=== PATIENT | female | born 1945 | race Caucasian/White ===

== ENCOUNTER 2016-07-19 17:26 | Emergency (ER) | payer MEDICARE ==
[2016-07-19 18:27] LABS: Urine Appearance Cloudy; Urine Bilirubin Negative (NEGATIVE); Urine Color Yellow; Urine Ketone Negative (NEGATIVE)
[2016-07-19 18:28] LABS: Urine Blood 150 /ul (NEGATIVE); Urine Nitrite Negative (NEGATIVE); Urine Protein >=300 mg/dL (NEGATIVE); Urine Specific Gravity 1.025 SP.GR. (1.005-1.010); Urine Urobilinogen Normal (NORMAL)
[2016-07-19 18:30] LABS: Urine Bacteria 1+; Urine WBC >50 /hpf (0-5)
[2016-07-19] MEDS ORDERED: PHENAZOPYRIDINE HCL 100 MG TABLET PO ONE (18:46)
[2016-07-19] MEDS ORDERED: PHENAZOPYRIDINE HCL 100 MG TABLET ONE (18:48)
--- OUTSIDE RECORDS SUMMARY | 2016-07-19 18:53 | XMS REPORT | Continuity of Care Document ---
:1945 Author Organization [facility] ([facility]) Address [address] [place] [address] Phone [phone] Care Team Providers Name Role Phone Albina Cleaning Primary Care Provider [phone] Source Comments This disclosure is being made pursuant to the Care Everywhere program, applicable federal and state laws, and may not contain all informaitonavailable regarding this patient.[facility] ([facility]) Active Allergies and Adverse Reactions Allergen Noted Date Severity Reactions Comments Meperidine Nausea & Vomiting Other Agent Blisters "ADHESIVE TAPE" Current Medications Prescription Sig. Disp. Refills Start Date End Date Status GLIMEPIRIDE 4 mg tablet Take by mouth 2 12/13/2013 Active times daily with meals. HYDROCODONE-ACETAMINOPH Take 1 Tab by 02/04/2014 Active EN 5-325 mg per tablet mouth every 4 hours as needed. LISINOPRIL-HYDROCHLOROT Take 1 Tab by 12/13/2013 Active HIAZIDE 20-12.5 mg per mouth daily. tablet METHADONE 5 mg tablet Take 1 Tab by 02/11/2014 Active mouth 2 times daily. ZOLMITRIPTAN 5 mg Take 1 Tab by 02/27/2014 Active tablet mouth as needed. ATORVASTATIN 40 mg Take 1 Tab by 02/27/2014 Active tablet mouth daily. HYDROXYZINE HCL 50 mg Take 2 Tabs by 02/27/2014 Active tablet mouth 2 times daily. LEVOTHYROXINE 150 mcg Take 1 Tab by 02/27/2014 Active tablet mouth daily. METOPROLOL succinate 25 Take 1 Tab by 12/22/2013 Active mg XL tablet mouth daily. ONGLYZA 5 mg tablet Take 1 Tab by 12/13/2013 Active mouth daily. gabapentin 300 mg Take 1 capsule by Active capsule mouth every morning then take 2 tablets by mouth every evening latanoprost 0.005 % instill 1 Drop Active ophthalmic solution onto both eyes every evening. omega-3 fatty Take 1,000 mg by Active acids-vitamin E (FISH mouth daily. OIL) 1,000 mg capsule multivitamin tablet Take 1 Tab by Active mouth daily. ascorbic acid (VITAMIN Take 500 mg by Active C) 500 mg tablet mouth daily. TRIMETHOPRIM-SULFAMETHO 08/14/2014 Active XAZOLE 80-400 mg per tablet SUPPLY ACCU-CHEK DAE 12/12/2014 Active PLUS test strip LANTUS 100 unit/mL 30 Units daily 01/02/2015 Active injection vial solifenacin (VESICARE) Take 1 tablet (10 90 tablet 3 08/21/2015 Active 10 mg tablet mg total) by mouth daily. Active Problems Problem Noted Date Chronic pain 06/17/2014 High body mass index 06/14/2014 UPJ (ureteropelvic junction) obstruction 03/06/2014 Immunizations Name Dates Previously Given Next Due Influenza, unspecified 03/20/2014 Pneumococcal Polysaccharide, PPSV23 (Pneumovax 23) 06/17/2014 Social History Tobacco Use Types Packs/Day Years Used Date Never Smoker Smokeless Tobacco: Never Used Tobacco Cessation:Counseling Given: Yes Comments: Alcohol Use Drinks/Week oz/Week Comments No Last Filed Vital Signs Vital Sign Reading Time Taken Blood Pressure 128/67 07/13/2015 2:12 PM CDT Pulse 73 07/13/2015 2:12 PM CDT Temperature 36.9 C (98.4 F) 07/13/2015 2:12 PM CDT Respiratory Rate 16 06/17/2014 8: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 Height 1.549 m (5' 1") 06/15/2014 10:00 PM ACTIVE DIRECTORY SYSTEMS ADMINISTRATOR Weight 108 kg (238 lb 1.6 oz) 10/06/2014 11:33 AM CDT Body Mass Index 45.01 10/06/2014 11:33 AM CDT Oxygen Saturation 94% 06/17/2014 8: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 Plan of Care Health Maintenance Due Date Last Done Comments HCV Screening 1945 Hepatitis B Vaccine (1 of 3 - Primary Series) 1945 Tdap Vaccine 1956 Lipid Disorder Screening 07/03/1963 Td Vaccine 07/03/1963 Mammogram 1985 Colonoscopy 1995 Zoster Vaccine 2005 Osteoporosis Screening (DXA Bone Density) 2010 Pneumococcal Vaccine (2 of 2 - PCV13) 06/17/2015 06/17/2014 Influenza Vaccine: Seasonal (#1) 11/19/2015 03/20/2014 Results from Last 3 Months Not on file
--- NOTE | 2016-07-19 19:02 | ERNOTE ---
ER Female HPI Date of Service: 07/19/16 Stated Complaint: URINARY PROBLEM Presenting Symptoms: dysuria Time Seen by Provider: 07/19/16 18:40 Source: patient Exam Limitations: no limitations Immunizations: IMMUNIZATION HX Immunizations Up to Date Yes History of Influenza Vaccine Yes Hx Pneumococcal Vaccination Yes Allergies/Adverse Reactions: Allergies meperidine HCl [From Demerol] Allergy (Mild, Verified 07/19/16 18:11) Home Medications: HOME MEDICATIONS Ascorbic Acid [Vitamin C] 500 mg PO DAILY 05/07/12 [Last Taken Unknown] Aspirin [Aspirin Chewable] 81 mg PO DAILY 05/07/12 [Last Taken Unknown] Atorvastatin Calcium [Lipitor] 40 mg PO DAILY 05/07/12 [Last Taken Unknown] Cetirizine HCl [Zyrtec] 10 mg PO DAILY PRN 05/07/12 [Last Taken Unknown] Cholecalciferol (Vitamin D3) [Vitamin D] 1,000 unit PO DAILY 05/07/12 [Last Taken Unknown] Diphenhydramine HCl [Benadryl Allergy] 25 mg PO HS PRN 05/07/12 [Last Taken Unknown] FLUoxetine HCL [Prozac] 40 mg PO DAILY 05/07/12 [Last Taken Unknown] Furosemide [Lasix] 40 mg PO PRN PRN 05/07/12 [Last Taken Unknown] Gabapentin 600 mg PO TID 05/07/12 [Last Taken Unknown] Glimepiride 4 mg PO BID 05/07/12 [Last Taken Unknown] Hydroxyzine HCl 50 mg PO QID 05/07/12 [Last Taken Unknown] Levothyroxine Sodium 125 mcg PO DAILY 05/07/12 [Last Taken Unknown] Metformin HCl 1,000 mg PO BID 05/07/12 [Last Taken Unknown] Methadone HCl 5 mg PO BID 05/07/12 [Last Taken Unknown] Olmesartan/Hydrochlorothiazide [Benicar Hct 20-12.5 mg Tablet] 1 each PO DAILY 05/07/12 [Last Taken Unknown] Baldwin-3/Dha/Epa/Fish Oil [Fish Oil] 1,000 mg PO DAILY 05/07/12 [Last Taken Unknown] Saxagliptin HCl [Onglyza] 5 mg PO DAILY 05/07/12 [Last Taken Unknown] Travoprost [Travatan Z] 1 drop LEFTEYE DAILY 05/07/12 [Last Taken Unknown] Triamcinolone Acetonide 10 gm MC PRN PRN 05/07/12 [Last Taken Unknown] Zolmitriptan [Zomig] 5 mg PO PRN 05/07/12 [Last Taken Unknown] Phenazopyridine HCl [Pyridium] 200 mg PO TID #6 tablet 02/04/14 [Last Taken Unknown] Sulfamethoxazole/Trimethoprim [Bactrim Ds] 1 tab PO BID #20 tab 02/04/14 [Last Taken Unknown] Vesicare 10/08/14 [Last Taken Unknown] predniSONE [Prednisone] 3 tab PO DAILY #9 tab 10/08/14 [Last Taken Unknown] Ciprofloxacin HCl [Cipro] 500 mg PO BID #28 tab 07/19/16 [Last Taken Unknown] Phenazopyridine HCl [Pyridium] 100 mg PO TID #6 tab 07/19/16 [Last Taken Unknown ] - History of Present Illness Narrative: Pt. comes in with c/o dysuria, frequency and foul smelling urine since this morning. Pt. has a hx of frequent UTIs, and renal insufficiency. Pt. denies any SOB, CP, swelling, dizziness, lightheadedness, fever, or chills. Review of Systems - Review of Systems Constitutional: Present: no symptoms reported. Absent: recent illness, fever, chills, weakness, fatigue, malaise EYE: Present: no symptoms reported ENT: Present: no symptoms reported Respiratory: Present: no symptoms reported. Absent: shortness of breath, cough , wheezing Cardiology: Present: no symptoms reported. Absent: chest pain, palpitations, edema Gastrointestinal/Abdominal: Present: no symptoms reported. Absent: nausea, vomiting, diarrhea, abdominal pain Genitourinary: Present: frequency, dysuria, decreased urinary output Musculoskeletal: Present: no symptoms reported. Absent: back pain, joint pain Skin: Present: no symptoms reported Neurological: Present: no symptoms reported. Absent: headache, dizziness/light- headedness, numbness, tingling All Other Systems: All systems neg except as marked - Patient's Past Medical History Patient History - Medical: Diabetes Type 2, UTI'S Patient History - Cardiac/Respiratory: Hypertension Patient History - Cancer: No Hx of Cancer Patient History - Surgical Procedures: Appendectomy, Hysterectomy, Other - Oopherectomy, Bilateral Total Knee Replacement, Vein Stripping - Social History Living Situations: home Psych History: No pertinent hx Smoking Status: Never smoker Patient requests Smoking Cessation Consult: No Initiate information on Smoking Cessation: No Alcohol Use: none Drug Use: none - Immunizations Immunizations Up to Date: Yes Hx Pneumococcal Vaccination: Yes History of Influenza Vaccine: Yes Physical Exam - Physical Exam General Appearance: Present: wd/wn, alert, no apparent distress Eye Exam: Normal inspection: bilateral, PERRL: bilateral, EOMI: bilateral Ears, Nose, Throat: Present: normal ENT inspection, normal pharynx Neck: Present: normal inspection, nontender. Absent: lymphadenopathy (R), lymphadenopathy (L) Respiratory: Present: no respiratory distress, normal breath sounds, no accessory muscle use, chest nontender, lungs clear Cardiovascular/Chest: Present: regular rate, rhythm, no murmur, normal peripheral pulses Gastrointestinal/Abdominal: Present: normal bowel sounds, nontender, nondistended, soft, no organomegaly Back Exam: Present: normal inspection, normal range of motion, no CVA tenderness , no vertebral tenderness Extremity Exam: Present: normal inspection, non-tender, normal range of motion, no edema Neurological Exam: Present: alert, oriented, normal mood/affect, no motor/ sensory deficits Skin Exam: Present: normal color, warm/dry. Absent: pallor, skin rash ED Progress - Results and Orders Patient's Lab Results:: I have reviewed the patient's lab results. - Vital Signs Patient's Vital Signs:: I have reviewed the patient's vital signs. Vital Signs: Vital Signs 07/19/16 18:08 Temperature 36.9 C Pulse Rate 76 Respiratory 20 Rate Blood Pressure 128/94 O2 Sat by Pulse 98 Oximetry - Progress/Reassessment Chief Complaint: Genitourinary Problem Progress:: Unchanged Departure Clinical Impression: Urinary tract infection Qualifiers: Urinary tract infection type: acute cystitis Hematuria presence: with hematuria Qualified Code(s): N30.01 - Acute cystitis with hematuria - Departure Disposition: Home self-care Condition: Good Instructions: Urinary Tract Infection, Adult, [id number] Additional Instructions: Please follow up with primary provider in 2-3 days. Referrals: Albina Cleaning MD [Primary Care Provider] - Prescriptions: Ciprofloxacin HCl [Cipro] 500 mg PO BID #28 tab Phenazopyridine HCl [Pyridium] 100 mg PO TID #6 tab
[2016-07-19 19:08] LABS: Hematocrit 42.6 % (37.0-47.0); Hemoglobin 13.9 gm/dL (12.5-16.0); Mean Cell Volume 98.2 fl (78-100); Mean Corpuscular Hgb Conc 32.6 g/dl (32-36); Mean Platelet Volume 9.3 fl (6.0-9.5); Neutrophil # 11.3 K/mm3 (1.3-6.0); Neutrophil % 68.2 % (42-75.0); Platelet Count 232 K/mm3 (150-450); Red Blood Count 4.34 M/mm3 (4.2-5.4); Red Cell Distribution Width 12.3 % (11.5-14.0); White Blood Count 16.5 K/mm3 (4.0-10.5)
[2016-07-19 19:20] LABS: Albumin * 3.6 gm/dl (3.4-5.0); Anion Gap 11.8 mmol/L (6.8-13.8); Bilirubin, Total 0.7 mg/dL (0.0-1.1); Ca. Corrected For Albumin 9.1 mg/dL (8.4-10.2); Calcium * 9.1 mg/dL (7.9-10.9); Carbon Dioxide 30.7 mmol/L (24-32.6); Potassium 4.5 mmol/L (3.4-4.6); Total Protein 7.3 gm/dL (6.2-8.2)
[2016-07-19] MEDS ORDERED: CIPROFLOXACIN HCL 250 MG TABLET ONE (19:33)
[2016-07-19] MEDS ORDERED: CIPROFLOXACIN HCL 250 MG TABLET PO ONE (19:37)
[2016-07-19 19:44] VITALS: BP 126/64
== END 2016-07-19 19:42 | disposition home or self-care (01) ==
LOC: ER 17:26
DX: N30.01 Acute cystitis with hematuria (principal)

== ENCOUNTER 2019-05-16 08:47 | Inpatient (IN) ==
--- NOTE | 2019-04-27 10:51 | ANES ---
Anesthesia Pre Procedure Eval HOME MEDICATIONS travoprost 0.004 % eye drops 1 drp OP DAILY 12/10/17 [Last Taken Unknown] WIH-wrwebprocpfcj-saodbzts-buffers 227 mg-194 mg-33 mg tablet 2 tab PO DAILY #180 tab 02/02/18 [Last Taken Unknown] albuterol sulfate 2.5 mg IH QID PRN #180 ml 02/02/18 [Last Taken Unknown] ascorbic acid (vitamin C) 500 mg tablet 500 mg PO DAILY #90 tab 02/02/18 [Last Taken Unknown] aspirin 81 mg chewable tablet 81 mg PO DAILY #90 tab 02/02/18 [Last Taken Unknown] calcium carbonate 500 mg (1,250 mg)-vitamin D3 200 unit tablet 1 tab PO DAILY #90 tab 02/02/18 [Last Taken Unknown] cholecalciferol (vitamin D3) 1,000 unit (25 mcg) tablet 1,000 unit PO DAILY #90 tab 02/02/18 [Last Taken Unknown] omega 3-dha 60 mg-epa 90 mg-fish oil 500 mg capsule, delayed release 2 cap PO DAILY #180 cap 02/02/18 [Last Taken Unknown] insulin glargine 100 unit/mL subcutaneous solution 40 unit SUB-Q DAILY 90 Days #36 ml 03/22/18 [Last Taken Unknown] blood sugar diagnostic See Dose Instructions .ROUTE .MEDSUPPLY #100 ea 07/28/18 [Last Taken Unknown] levothyroxine 100 mcg tablet 100 mcg PO DAILY #90 tab 09/14/18 [Last Taken Unknown] sulfamethoxazole 400 mg-trimethoprim 80 mg tablet 1 tab PO DAILY #90 tab 09/23/18 [Last Taken Unknown] cetirizine 10 mg tablet 10 mg PO DAILY #90 tab 01/21/19 [Last Taken Unknown] lisinopril 20 mg-hydrochlorothiazide 12.5 mg tablet 1 tab PO DAILY #90 tab 02/21/19 [Last Taken Unknown] atorvastatin 40 mg tablet 40 mg PO DAILY #90 tab 03/07/19 [Last Taken Unknown] zolmitriptan 5 mg tablet 5 mg PO .COMPLEX PRN #36 tab 03/07/19 [Last Taken Unknown] HYDROcodone/ACETAMINOPHEN [Hydrocodon-Acetaminophen 5-325] 1 - 2 ea PO Q6H PRN #16 tab 03/19/19 [Last Taken Unknown] insulin syringe-needle U-100 0.5 mL 31 gauge x 5/16" See Dose Instructions .ROUTE .MEDSUPPLY #100 ea 04/07/19 [Last Taken Unknown] tramadol 50 mg tablet 100 mg PO QID PRN #60 tab 04/07/19 [Last Taken Unknown] Diazepam [Valium] 5 mg PO BID PRN #6 tab 04/26/19 [Last Taken Unknown] Diazepam 5 mg PO BID PRN 04/27/19 [Last Taken Unknown] FLUoxetine HCL [Fluoxetine HCl] 40 mg PO DAILY 04/27/19 [Last Taken Unknown] Allergies/Adverse Reactions: Allergies Allergy/AdvReac Type Severity Reaction Status Date / Time adhesive tape Allergy Intermediate Other Verified 04/27/19 08:24 alendronate sodium AdvReac Mild Nausea Verified 04/27/19 08:21 [From Fosamax] meperidine HCl [From Demerol] AdvReac Mild vomiting Verified 04/27/19 08:22 - Planned Procedure Planned Procedure: Left Arthroplasty Total Hip Medication List Reviewed:: Yes Allergies Verified: Yes Medical History (Last Reviewed 04/27/19 @ 10:49 by Presley Jackson CRNA) 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 Vertigo Chronic pain syndrome Onset Date: Unknown Diabetes Onset Date: ~1999 Diverticulosis Onset Date: Unknown Gout Onset Date: Unknown Hydronephrosis Onset Date: ~2003 left hydronephrosis and a renal scan showed ureteral obstruction and function of 20% Hyperlipidemia Onset Date: ~1997 Hypertension Onset Date: ~1995 Hyperthyroidism Onset Date: ~1997 treated with ERIC Morbid obesity Onset Date: Unknown Spinal stenosis Onset Date: Unknown Occ radiation causing sciatic pain Surgical History (Last Reviewed 04/27/19 @ 10:49 by Presley Jackson CRNA) Abnormal colonoscopy Onset Date: 08/25/05 diverticulosis, 3mm polyps at 110 cm. H/O cystoscopy Onset Date: ~05/2005 removal of double J stent. Endoscopic balloon dilatation of the left ureteropelvic junction. Placement of double J stent. H/O oophorectomy Onset Date: ~1988 right ovary H/O total hysterectomy Onset Date: ~1990 MING and left ovary removal History of appendectomy Onset Date: ~1988 History of total left knee replacement Onset Date: ~2006 History of total right knee replacement Onset Date: ~1998 Lesion of breast Onset Date: 04/17/03 left breast cystourethroscopy Onset Date: 04/18/05 bilateral retrograde pyelogram, replacement of a left double J ureteral stent. h/o of pyeloplasty Onset Date: ~05/2014 Robotic assisted laparoscopic pyeloplasty-[facility] left retrograde endopyelotomy Onset Date: Unknown Family History (Last Reviewed 04/27/19 @ 10:49 by Presley Jackson CRNA) Brother Cancer bone Brother Sepsis Father , 79 Diabetes Myocardial infarction Mother , 75 Diabetes Cancer leukemia Sister Scarlet fever - Family Anesthesia History Family History:: no untoward family reactions to anesthesia, no familial bleeding tendencies, no family history of clotting disorders, no family history of premature - Airway/Neck/Teeth Within Normal Limits:: Yes Teeth Condition: intact Mallampatti Score: 1 Thyromental (T-M) distance: > 6 cm Mandibulo Hyoid distance: > 3 cm - Respiratory Smoking Status: Never smoker Discussed smoking cessation including day of surgery: No Sleep Apnea currently treated: No Sleep Apnea by current assessment: No Discussed Risks/Treatment of LEONIDAS: No - Cardiovascular Tolerate Activity: Fair Heart Sounds: S1 & S2, Regular - Anesthesia Assessment and Plan ASA Class: PS, III Anesthesia Type Plan: Spinal
[~2019-05-16 08:47] MED LIST: MORPHINE SULFATE 15 MG TABLET.SA PO PRN; ROPIVACAINE HCL/PF 100 MG, EPINEPHrine 0.2 MG, KETOROLAC TROMETHAMINE 30 MG in NORMAL S... IJ PRN; TRANEXAMIC ACID 1,000 MG in NORMAL SALINE 100 ML IV PRN; ceFAZolin SODIUM 1 GM VIAL IV PRN
[2019-05-16] MEDS ORDERED: ISOPROPYL ALCOHOL 480 APPL BTL MC ONE (09:03)
[2019-05-16] MEDS ORDERED: ceFAZolin SODIUM 1 GM VIAL ONE (09:04)
[2019-05-16] MEDS: RINGER'S SOLUTION,LACTATED 1,000 ML IV PRN ×3 (10:40→16:32)
[2019-05-16] MEDS ORDERED: fentaNYL CITRATE/PF 50 MCG/ML AMPUL ONE (11:08)
[2019-05-16] MEDS ORDERED: ONDANSETRON HCL/PF 2 MG/ML VIAL ONE (11:08)
[2019-05-16] MEDS ORDERED: LIDOCAINE HCL 20 ML VIAL ONE (11:08)
[2019-05-16] MEDS ORDERED: PROPOFOL VIAL IV ONE (11:09)
[2019-05-16] MEDS ORDERED: ROCURONIUM BROMIDE 10 MG/ML VIAL ONE (13:37)
[2019-05-16] MEDS ORDERED: SUCCINYLCHOLINE CHLORIDE 20 MG/ML VIAL ONE (13:37)
[2019-05-16] MEDS ORDERED: HYDROmorphone HCL 2 MG/ML VIAL ONE (13:37)
[2019-05-16] MEDS ORDERED: NEOSTIGMINE METHYLSULFATE 1 MG/ML VIAL ONE (13:40)
[2019-05-16] MEDS ORDERED: GLYCOPYRROLATE 0.2 MG/ML VIAL ONE (13:41)
[2019-05-16] MEDS ORDERED: ACETAMINOPHEN 500 MG TABLET PO PRN (14:17)
[2019-05-16] MEDS ORDERED: ZOLPIDEM TARTRATE 5 MG TABLET PO PRN (14:17)
[2019-05-16] MEDS ORDERED: diphenhydrAMINE HCL 50 MG/ML VIAL IV PRN (14:17)
[2019-05-16] MEDS ORDERED: MAGNESIUM HYDROXIDE 30 ML UDC PO PRN (14:17)
[2019-05-16] MEDS ORDERED: MAG HYDROX/ALUMINUM HYD/SIMETH 30 ML UDC PO PRN (14:17)
[2019-05-16] MEDS ORDERED: MORPHINE SULFATE 2 MG/ML DISP.SYRIN IV PRN (14:17)
--- NOTE | 2019-05-16 14:17 | OR ---
Operative Report - Dictated Report Narrative: Date: 05/16/2019 Preoperative diagnosis: Left hip degenerative joint disease. Postoperative diagnosis: Left hip degenerative joint disease. Procedure: Left total hip arthroplasty. Surgeon: Samuel Bourgeois M.D. Collector Of Port: Robbin Gallardo PA-C (provided an essential set of skilled, educated and assisted with transfer, positioning, prepping, draping, manipulation, traction, irrigation, suturing, and placement of dressings all of which cannot be performed by the available surgical crew) Anesthesia: General and local periarticular joint injection. Complications: None Specimens: Bone. Estimated blood loss: 150 milliliters. Retained implants: Depuy Winston size 4 femoral stem standard offset. Size 48 millimeter outside diameter 3-hole Forest Gription acetabular cup. 48 millimeter outside by 32 millimeter inside diameter highly cross-linked acetabular liner. 32 millimeter diameter +9 millimeter cobalt chromium femoral head. Cancellous 6.5mm screw 25 millimeter length Indications: Mrs. Mata is a 73-year-old female who has had longstanding left hip pain and arthrosis. This patient was followed in my clinic for period of time with significant complaints of left hip pain consistent with arthritic changes. She failed conservative measures including but not limited to activity modification, passage of time, medications, and other conservative measures. Patient wished to proceed with surgical treatment. The risks, benefits, and alternatives were discussed in clinic. The risks of , blood clots, bleeding, infection, nerve/tendon blood vessel/ injury, malposition of components, dislocation and/or instability of joint, intraoperative fracture, postoperative limited range of motion, persistent pain, failure of components, and need for additional procedures. Patient wished to proceed. Consent was obtained after answering all questions. Procedure: After marking the correct extremity on the floor, the patient was taken to the operating room. A timeout was performed. IV antibiotics consisting of Ancef were administered prior to the procedure. A spinal anesthetic was attempted but was unsuccessful. A general anesthetic was induced by anesthesia. A Matthews catheter was inserted. The patient was then transitioned to a lateral position on a well-padded pegboard. An axillary roll was placed. The head was in neutral position. The non-operative down leg was well-padded with SCD and BRADY hose in place. The arms were supported and padded to protect from any undue pressure on the bony prominences and nerves. A well- padded anterior and posterior pelvic and chest posts were secured in order to maintain a stable position of the pelvis. This was placed so that the pelvis was perpendicular to the floor. The body was in line with the pelvis. Once it was felt that we had protected all the bony prominences and the patient was well secured with a safety belt as well, the leg was pre-scrubbed with alcohol, prepped and draped in a standard sterile fashion. A standard anterior lateral hip incision was marked out over the greater trochanter. Ioban drapes were then placed. The skin incision was then made. Sharp dissection with a scalpel utilizing cautery for hemostasis was carried out down to the gluteus and iliotibial band fascia. This was split in line with the skin incision. The greater trochanter bursa was excised. The anterior and posterior margins of the abductor tendon were identified. The anterior 1/2-1/3 of the tendon was tagged and reflected off the greater trochanter leaving a sleeve of tendon for repair at the completion of the case. This exposed the underlying hip joint capsule. A limb length stitch was placed in the skin and referencedd off a niurka on the greater trochanter for evaluation of intraoperative limb lengths. An inverted T-type capsulotomy was made extending this up to the brim of the acetabulum. Using Homans to assist with elevation of the soft tissues off the anterior, superior, and inferior aspects of the femoral neck, the hip was then placed in a figure 4 position and the femoral head was dislocated. With the leg in an externally rotated and adducted position, the cutting flag was utilized in order to niurka for a standard femoral neck cut approximately a fingerbreadth above the level of the lesser trochanter. This was done with reference to pre-operative films and overall alignment. This was done while protecting the surrounding soft tissues with Homans. The femoral head was then removed and sized for guidance on preparation of the acetabulum. It was noted that there was loss of articular cartilage on both the femoral head and weightbearing portions of the acetabulum. We then returned the leg to the table and turned our attention to the acetabulum. While protecting the surrounding soft tissues, the labrum and remaining tissue in the fovea were excised using a scalpel and cautery. A series of reamers up to size 48 millimeter were utilized to prepare the acetabulum. The final reamer had good purchase and exposed the bleeding subchondral bone. The acetabulum was then thoroughly irrigated ensuring that all bony and cartilaginous materials were removed, and the final acetabular shell was impacted into place. This was placed in approximately 45 degrees of abduction and 20 degrees of anteversion utilizing the outrigger and body axis for alignment. This had a good press fit. 1 6.5mm cancellous screw was placed in the superior posterior quadrant of the acetabulum. The shell was then thoroughly irrigated and the final polyethylene was impacted into place ensuring that it seated completely. This was then protected with a sponge while we returned our attention to the femur. With the leg in a figure 4 position, utilizing Homans for soft tissue protection, a box cutting osteotome, followed by Charnley awl, followed by serial reamers and broaches were utilized in order to prepare the femur. It was found that a size 4 broach gave good axial and rotational stability. The calcar reamer was utilized in order to clean up the cut edges. The proximal femur was visualized to ensure that there were no signs of fracture. A series of heads and necks were trialed. It was found that a standard offset neck and a + 9 femoral head gave good overall stability. There was minimal longitudinal instability. With the leg in the position of sleep, the femoral head was well covered. Hip range of motion was able to reach full extension and external rotation to greater than 75 degrees prior to impingement along the posterior acetabulum. The hip was able to be flexed to greater than 90 degrees with internal rotation greater than 60 degrees prior to anterior impingement. The limb lengths were near equal based on comparison to the contralateral side and the prior placed limb length stitch. At this point it was felt these were the appropriately sized femoral components as well as neck and femoral head. The trial implants were removed. The femur was thoroughly irrigated. The final implants were impacted into place, and the hip was reduced. After ensuring that there was no damage to the proximal femur, the standard periarticular joint injection of ropivacaine, Toradol, and epinephrine were injected into the joint capsule and surrounding soft tissues. Anesthesia then administered intravenous tranexamic acid. The capsule was repaired with a single interrupted #1 Vicryl. The abductor tendon was repaired to the greater trochanter utilizing #5 Ethibond through drill holes. This was oversewn with #1 Vicryl. The fascia was closed with interrupted #1 Vicryl and strata fix barbed suture. The wounds were thoroughly irrigated as we closed in layers. The deep and subcutaneous fat layers were closed with 0 and 3-0 Vicryl respectively. The subcutaneous tissue was closed with a running 3-0 Vicryl and the skin hayley and Dermabond. All sponge, needle, blade, and instrument counts were correct prior to closing the wounds. Sterile dressings consisting of 4 x 4's, and tape were applied. The patient was awoken and transferred to her hospital bed and then to the postanesthesia care unit in stable condition. Postoperative condition: The plan is to admit to the medical/surgical inpatient floor postoperatively. There will be a projected 1 to 3 day hospital stay. Postoperatively 24 hours of IV antibiotics, pain control, physical therapy, occupational therapy, and medical comanagement will be utilized. Patient will be weightbearing as tolerated with anterior hip precautions. Postoperative films will be obtained in the recovery room.
[2019-05-16] MEDS ORDERED: ALBUTEROL SULFATE 2.5 MG/0.5 ML VIAL.NEB IH PRN (14:20)
[2019-05-16] MEDS ORDERED: Zolmitriptan [Zomig] 5 MG PO PRN (14:20)
--- NOTE | 2019-05-16 14:54 | ANES ---
Post Anesthesia Discharge - Transfer of Care Transfer of Care handoff given to nurse: Yes - Discharge from PACU Discharge from PACU when meets criteria: Yes - Discharge to ASU Discharge to ASU-no complications/pt stable: Yes
[2019-05-16] MEDS: KETOROLAC TROMETHAMINE 15 MG/ML VIAL IV SCH ×2 (15:19→21:21)
[2019-05-16] MEDS: ceFAZolin SODIUM 1 GM in DEXTROSE 5 % IN WATER 100 ML IV SCH ×4 (16:33→21:29)
[2019-05-16] MEDS: SENNOSIDES/DOCUSATE SODIUM 1 TAB TABLET PO SCH (21:17)
[2019-05-16] MEDS: MORPHINE SULFATE 15 MG TABLET.SA PO SCH (21:17)
[2019-05-16] MEDS: oxyCODONE HCL/ACETAMINOPHEN 1 TAB TABLET PO PRN (21:17)
[2019-05-17] MEDS: RINGER'S SOLUTION,LACTATED 1,000 ML IV PRN (01:24)
[2019-05-17] MEDS: KETOROLAC TROMETHAMINE 15 MG/ML VIAL IV SCH ×4 (03:38→21:24)
[2019-05-17] MEDS: ceFAZolin SODIUM 1 GM in DEXTROSE 5 % IN WATER 100 ML IV SCH ×2 (03:42)
[2019-05-17 05:39] LABS: Hematocrit 32.6 % (37.0-47.0); Hemoglobin 10.2 gm/dL (12.5-16.0); Mean Cell Volume 104.2 fl (78-100); Mean Corpuscular Hemoglobin 32.6 pg (27-31); Mean Corpuscular Hgb Conc 31.3 g/dl (32-36); Mean Platelet Volume 10.3 fl (8-12.5); Platelet Count 163 K/mm3 (150-450); Red Blood Count 3.13 M/mm3 (4.2-5.4); Red Cell Distribution Width 12.1 % (11.5-14.0); White Blood Count 10.8 K/mm3 (4.0-10.5)
[2019-05-17 06:05] LABS: BUN/Creatinine Ratio 12.7 (9.0-21.6); Calcium * 8.3 mg/dL (7.9-10.9); Carbon Dioxide 28.4 mmol/L (24-32.6); Estimated Creat Clear 32.9; Potassium 4.4 mmol/L (3.4-4.6)
[2019-05-17] MEDS: LEVOTHYROXINE SODIUM 100 MCG TABLET PO SCH (06:53)
[2019-05-17] MEDS: oxyCODONE HCL/ACETAMINOPHEN 1 TAB TABLET PO PRN ×3 (06:53→18:41)
[2019-05-17] MEDS: ONDANSETRON HCL/PF 2 MG/ML VIAL IV PRN ×2 (06:54→18:40)
[2019-05-17] MEDS ORDERED: NON-FORMULARY 1 DOSE DOSE (Lisinopril/Hydrochlorothiazide [Lisinopril-Hctz 20-12.5 Mg Tab] PO SCH (09:00)
[2019-05-17] MEDS: CHOLECALCIFEROL 1,000 UNIT CAPSULE PO SCH (09:06)
[2019-05-17] MEDS: ROSUVASTATIN CALCIUM 20 MG TABLET PO SCH (09:06)
[2019-05-17] MEDS: LISINOPRIL 20 MG TABLET PO SCH (09:06)
[2019-05-17] MEDS: CALCIUM CARBONATE/VITAMIN D3 1 TAB TABLET PO SCH (09:06)
[2019-05-17] MEDS: FLUoxetine HCL 20 MG CAPSULE PO SCH (09:06)
[2019-05-17] MEDS: HYDROCHLOROTHIAZIDE 12.5 MG CAPSULE PO SCH (09:06)
[2019-05-17] MEDS: LORATADINE 10 MG TABLET PO SCH (09:06)
[2019-05-17] MEDS: MORPHINE SULFATE 15 MG TABLET.SA PO SCH ×2 (09:06→20:23)
[2019-05-17] MEDS: ASCORBIC ACID 500 MG TABLET PO SCH (09:06)
[2019-05-17] MEDS: INSULIN GLARGINE,HUM.REC.ANLOG 100 UNITS/ML VIAL SC SCH (09:07)
[2019-05-17] MEDS: TRAVOPROST 25 DROP BTL OP SCH (09:35)
[2019-05-17] MEDS: ENOXAPARIN SODIUM 40 MG/0.4 ML SYRG SC SCH (13:02)
--- NOTE | 2019-05-17 15:49 | PN ---
Subjective - Date and Time Seen Date: 05/17/19 Time: 15:45 Subjective Narrative: Kira reports her pain is doing well. She was able to ambulate with therapy but has not been able to navigate stairs well at this point time. She reports that she was able to sleep well last night. She reports no nausea or vomiting. She denies any lightheadedness or dizziness with getting up. She has no other complaints. Objective Objective Narrative: Patient is lying in bed comfortable at this time. She is able to plantarflex and dorsiflex her ankles. She reports sensation intact in both lower extremities. Left hip dressings are clean dry and intact. Calves are supple. Labs reviewed showed hemoglobin at 10.2 down from 12.9 g preoperatively. Her vital signs are stable. - Vitals Vitals: Last Vital Signs Temp 35.6 C L 05/17/19 14:00 Pulse 80 05/17/19 14:00 Resp 20 05/17/19 14:00 BP 134/64 05/17/19 14:00 Pulse Ox 92 L 05/17/19 14:00 - Abnormal Lab Findings Abnormal Lab Findings: Abnormal Lab Results 05/17/19 05/17/19 Range/Units 05:30 05:30 WBC 10.8 H (4.0-10.5) K/mm3 RBC 3.13 L (4.2-5.4) M/mm3 Hgb 10.2 L (12.5-16.0) gm/dL Hct 32.6 L (37.0-47.0) % MCV 104.2 H (78-100) fl MCH 32.6 H (27-31) pg MCHC 31.3 L (32-36) g/dl Est GFR (Non-Af Amer) 44 L (60-130) mL/min Random Glucose 158 H (70-110) mg/dL - Exam Constitutional: Present: Alert, Oriented x3, Cooperative, No distress Cauti Physician Documentation - Urinary Catheter Management Urethral (Matthews) Date of Insertion: 05/16/19 Time of Insertion: 12:20 Date of Removal: 05/17/19 Time of Removal: 07:00 Assessment/Plan - Problems/Diagnosis (1) Status post left hip replacement Problem: Acute Narrative: Physical therapy, pain control, anticoagulation. At this time patient is not safely navigated stairs and is not ready for discharge. She will spend the night and will work with therapy tomorrow on stairs to anticipate discharge in the afternoon if she continues to progress well. (2) Acute blood loss anemia Problem: Acute Narrative: Asymptomatic at this time. Will observe clinically. (3) Obesity Problem: Chronic (4) Hypertension Problem: Chronic Qualifiers: (5) Diabetes mellitus Problem: Chronic Qualifiers: (6) Hyperlipidemia Problem: Chronic Qualifiers:
[2019-05-17] MEDS: SENNOSIDES/DOCUSATE SODIUM 1 TAB TABLET PO SCH (20:23)
[2019-05-18] MEDS: oxyCODONE HCL/ACETAMINOPHEN 1 TAB TABLET PO PRN ×3 (00:15→12:29)
[2019-05-18] MEDS: KETOROLAC TROMETHAMINE 15 MG/ML VIAL IV SCH ×2 (03:55→09:49)
[2019-05-18] MEDS: LEVOTHYROXINE SODIUM 100 MCG TABLET PO SCH (07:59)
[2019-05-18] MEDS: MORPHINE SULFATE 15 MG TABLET.SA PO SCH (09:43)
[2019-05-18] MEDS: HYDROCHLOROTHIAZIDE 12.5 MG CAPSULE PO SCH (09:44)
[2019-05-18] MEDS: CALCIUM CARBONATE/VITAMIN D3 1 TAB TABLET PO SCH (09:44)
[2019-05-18] MEDS: FLUoxetine HCL 20 MG CAPSULE PO SCH (09:44)
[2019-05-18] MEDS: ROSUVASTATIN CALCIUM 20 MG TABLET PO SCH (09:44)
[2019-05-18] MEDS: ASCORBIC ACID 500 MG TABLET PO SCH (09:44)
[2019-05-18] MEDS: LORATADINE 10 MG TABLET PO SCH (09:44)
[2019-05-18] MEDS: LISINOPRIL 20 MG TABLET PO SCH (09:45)
[2019-05-18] MEDS: CHOLECALCIFEROL 1,000 UNIT CAPSULE PO SCH (09:45)
[2019-05-18] MEDS: INSULIN GLARGINE,HUM.REC.ANLOG 100 UNITS/ML VIAL SC SCH (09:47)
[2019-05-18] MEDS: TRAVOPROST 25 DROP BTL OP SCH (09:57)
[2019-05-18] MEDS: ENOXAPARIN SODIUM 40 MG/0.4 ML SYRG SC SCH (13:25)
--- NOTE | 2019-05-18 14:04 | DS ---
(1) Status post left hip replacement Problem: Acute (2) Acute blood loss anemia Problem: Acute (3) Obesity Problem: Chronic (4) Hypertension Problem: Chronic Qualifiers: (5) Diabetes mellitus Problem: Chronic Qualifiers: (6) Hyperlipidemia Problem: Chronic Qualifiers: Date of Discharge:: 05/18/19 Hospital Course: Mrs. Mata was admitted to the floor after undergoing left total hip arthroplasty. Tolerated this well. Was admitted to the floor postoperatively for 24 hours of IV antibiotics, pain control, medical comanagement, and occupational and physical therapy. OT and PT were consulted to assist with activities of daily living and ambulation. Was made weightbearing as tolerated with range of motion as tolerated with anterior hip precautions. Pain was initially controlled with IV regimen. This was transitioned to oral once tolerating a by mouth intake. Was resumed on home diet and medications. Had a Matthews catheter inserted and the operating room which was discontinued on postoperative day 1. Lovenox SCD and BRADY hose were utilized for DVT prophylaxis. Vital signs remained stable to the hospital course. She was slow to progress with therapy on postoperative day 1 and was unable to do stairs. On postoperative day 2 she managed to do stairs well without difficulty. Serial labs were obtained which showed a final hemoglobin of 10.2 grams down from 12.9 g preoperatively. Patient was asymptomatic regarding anemia and will watch clinically. BMP was reviewed and was stable. Physical examination throughout the hospital course showed an extremity that had sensation that was intact to light touch, palpable pulses, a benign wound, motor intact to the toes, ankle, and knee. Once an oral pain regimen was tolerated and physical therapy goals were met, it was felt that they were stable for discharge to home. Instructions: Continue with weightbearing as tolerated and range of motion as tolerated with anterior hip precautions. Keep wound clean and dry. If you note any drainage or for comfort you can cover with dry gauze and tape. Change every 2-3 days as needed. Continue with physical therapy. Resume home diet. Report any fever over 101.5 Fahrenheit, uncontrolled pain, increased drainage, foul odor of drainage, new or increased calf pain or shortness of breath, or any other significant complaints. A 325mg dialy aspirin will be started after finishing anticoagulation if not allergic. Continue with BRADY hose on the operative extremity until instructed otherwise. No driving until instructed otherwise. Follow up in approximately 10-14 days. Procedures Performed: see notes below List Procedures: Left total hip arthroplasty Results and Findings: Lab Pending Results 05/17/19 05:30: WBC 10.8 H, RBC 3.13 L, Hgb 10.2 L, Hct 32.6 L, MCV 104.2 H, MCH 32.6 H, MCHC 31.3 L, RDW 12.1, Plt Count 163, MPV 10.3 05/17/19 05:30: Sodium 137, Plasma Sodium 138, Potassium 4.4, Chloride 102, Carbon Dioxide 28.4, Anion Gap 11.0, BUN 16, Creatinine 1.26, Est GFR (Non-Af Amer) 44 L, BUN/Creatinine Ratio 12.7, Random Glucose 158 H, Calcium 8.3 Discharge Location: Home Disposition: Home self-care Condition: Good Discharge Activity: Weight bearing, Other - Utilizing wheeled walker with anterior hip precautions Discharge Diet: Consistent carbs, Low salt, Low fat/chol Referrals: Samuel Bourgeois MD [Staff Physician] - 05/31/19 10:45 am Problem Oriented Discharge Instructions to Patient/Family: Total Hip Replacement, Care After, [id number] Additional Patient Instructions (free text): Physical Therapy at [facility] outpatient rehab on ThursdayMay 18 at 11:00am. Follow up with Dr. Bourgeosi in the Orthopedic office on ThursdayMay 31 at 10:45am. Prescriptions (Any new or edited meds): Enoxaparin Sodium [Lovenox] 40 mg SC Q24H #6 disp.syrin Transmission Status: Pending to [place] Morphine Sulfate [Ms Contin] 15 mg PO Q12H #20 tablet.sa Transmission Status: Re[place] oxyCODONE HCL/ACETAMINOPHEN [Percocet 5 MG/325 MG] 2 tab PO Q4H PRN #56 tab PRN Reason: Moderate Pain (Pain Scale 4-6) Transmission Status: Re[place] Sennosides/Docusate Sodium [Senokot-S] 2 tab PO HS #30 tab Transmission Status: Pending to [place] Complete Home Medications List: Complete Home Medication List: travoprost 0.004 % eye drops 1 drp OP DAILY 12/10/17 albuterol sulfate 2.5 mg IH QID PRN #180 ml 02/02/18 ascorbic acid (vitamin C) 500 mg tablet 500 mg PO DAILY #90 tab 02/02/18 aspirin 81 mg chewable tablet 81 mg PO DAILY #90 tab 02/02/18 calcium carbonate 500 mg (1,250 mg)-vitamin D3 200 unit tablet 1 tab PO DAILY #90 tab 02/02/18 cholecalciferol (vitamin D3) 1,000 unit (25 mcg) tablet 1,000 unit PO DAILY #90 tab 02/02/18 insulin glargine 100 unit/mL subcutaneous solution 40 unit SUB-Q DAILY 90 Days #36 ml 03/22/18 blood sugar diagnostic See Dose Instructions .ROUTE .MEDSUPPLY #100 ea 07/28/18 levothyroxine 100 mcg tablet 100 mcg PO DAILY #90 tab 09/14/18 sulfamethoxazole 400 mg-trimethoprim 80 mg tablet 1 tab PO DAILY #90 tab 09/23/18 cetirizine 10 mg tablet 10 mg PO DAILY #90 tab 01/21/19 lisinopril 20 mg-hydrochlorothiazide 12.5 mg tablet 1 tab PO DAILY #90 tab 02/21/19 atorvastatin 40 mg tablet 40 mg PO DAILY #90 tab 03/07/19 insulin syringe-needle U-100 0.5 mL 31 gauge x 09/02" See Dose Instructions .ROUTE .MEDSUPPLY #100 ea 04/07/19 tramadol 50 mg tablet 100 mg PO QID PRN #60 tab 04/07/19 FLUoxetine HCL [Fluoxetine HCl] 40 mg PO DAILY 04/27/19 Zolmitriptan [Zomig] 5 mg PO Q2H PRN MDD 10 mg 05/16/19 Enoxaparin Sodium [Lovenox] 40 mg SC Q24H #6 disp.syrin 05/18/19 Morphine Sulfate [Ms Contin] 15 mg PO Q12H #20 tablet.sa 05/18/19 Sennosides/Docusate Sodium [Senokot-S] 2 tab PO HS #30 tab 05/18/19 oxyCODONE HCL/ACETAMINOPHEN [Percocet 5 MG/325 MG] 2 tab PO Q4H PRN #56 tab 05/18/19 Amb Orders for Discharge: PT Evaluation and Treatment* Facility: [facility], Location: Rehabilitation Services
[2019-05-18 15:49] VITALS: BP 143/54
[2019-05-18] MEDS ORDERED: TRAVOPROST 25 DROP BTL OP SCH (21:00)
== END 2019-05-18 16:40 | disposition home or self-care (01) | DRG 470 ==
LOC: MS 08:47
PROVIDERS: ADMIT Orthopaedic Surgery; ATTEND Orthopaedic Surgery
CPT/HCPCS: 36415; 73502; 80048; 85027; 97110; 97116; 97161; 97165; 97530; 97535; J2405